=== PATIENT | male | born 1945 ===

== ENCOUNTER → 2016-11-15 | Day surgery (SDC) | payer MEDICARE, MEDICAID ==
--- NOTE | 2016-11-11 10:17 | Pre-Procedure Note/Attestation ---
Pre-Procedure Note/Attestation Complete Prior to Procedure Planned Procedure: left Procedure Narrative: 1. CATARACT EXTRACTION WITH PHACO AND PC IOL IMPLANTATION, LEFT EYE. 2.MALYUGIN RING INSERTION, LEFT EYE FOR FLOPPY IRIS SYNDROME. 3.COMPLEX CATARACT , LEFT EYE Indications for Procedure Pre-Operative Diagnosis: 1. CATARACT ,LEFT EYE. 2. FLOPPY IRIS SYNDROME, LEFT EYE 3. COMPLEX CATARACT , LEFT EYE. Attestation I attest that I discussed the nature of the procedure; its benefits; risks and complications; and alternatives (and the risks and benefits of such alternatives ), prior to the procedure, with the patient (or the patient's legal promotions representative). I attest that, if there was a reasonable possibility of needing a blood transfusion, the patient (or the patient's legal promotions representative) was given the [facility] standardized written summary, pursuant to the Prabhjot Praful Blood Safety Act ([place] Health and Safety Code # 1645, as amended). I attest that I re-evaluated the patient just prior to the surgery and that there has been no change in the patient's H&P, except as documented below: ROSA YE Nov 11, 2016 10:17
[~2016-11-15] VITALS: Ht 170.2 cm; Wt 83.9 kg
[2016-11-15] VITALS (10 sets, daily range): BP systolic 114–148; BP diastolic 57–74
[~2016-11-15] MED LIST: ASPIR-LOW81 MG ORAL; Akten 3.5% 1ml Btl ONE; BENICAR HCT 401 EAC1 ORAL; BSS 15ml BTL ONE; BSS 500ml btl ONE; Dexamethasone 4mg/ml vial ONE; Diclofenac Sod 0.1% Op Soln ONE; DiphenhydrAMINE 50mg/ml Inj IVP PRN; EPINEPHrine 1mg/1ml Amp ONE; Gatifloxacin Opth Solution 0.5% ONE; LR 1000ml 1,000 ML IVLG SCH; LR 1000ml ONE; Lidocaine 1% MPF 10mg/ml 5ml ONE; Midazolam 2mg/2ml Inj ONE; NS Irrig 1000ml ONE; PROPRANOLOL HCL10 MG ORAL; Phenylephrine 10% Opth Soln 5ml ONE; Povidone-Iodine 5% opth solution ONE; Propofol 10mg/ml 20ml IV ONE; Sodium Hyaluronate 10 mg/ml 0.85ml ONE; Sterile Water Irrig 1000ml IRRIG ONE; VIT B12 PO; VIT D PO; ZOCOR20 MG ORAL; acetaZOLAMIDE 125mg tab ORAL ONE; fentaNYL 100 mcg/2 mL IV ONE; fentaNYL 100 mcg/2 mL IV PRN
[2016-11-15] MEDS: Tropicamide 1% Opth Soln LEFT EYE SCH ×3 (07:14→07:39)
[2016-11-15] MEDS: Phenylephrine 10% Opth Soln 5ml LEFT EYE SCH ×3 (07:14→07:39)
[2016-11-15] MEDS: Diclofenac Sod 0.1% Op Soln LEFT EYE SCH ×3 (07:15→07:39)
[2016-11-15] MEDS: Gatifloxacin Opth Solution 0.5% LEFT EYE SCH ×3 (07:15→07:40)
[2016-11-15] MEDS: Akten 3.5% 1ml Btl LEFT EYE SCH ×2 (07:24→07:40)
--- NOTE | 2016-11-15 08:35 | Anethesia Preoperative Eval ---
Anesthesia Pre-op PMH/ROS General Date of Evaluation: Nov 15, 2016 Time of Evaluation: 08:10 Anesthesiologist: Tyson ASA Score: ASA 2 Mallampati Score Class I : Soft palate, uvula, fauces, pillars visible Class II: Soft palate, uvula, fauces visible Class III: Soft palate, base of uvula visible Class IV: Only hard plate visible Mallampati Classification: Class II Surgeon: Pedro Diagnosis: L eye cataract Surgical Procedure: L eye cataract extraction Anesthesia History: none Family History: no anesthesia problems Allergies: Coded Allergies: No Known Allergies (Unverified , 05/20/16) Medications: see eMAR Past Medical History Cardiovascular: Reports: HTN, Denies: CAD, ND, arrhythmia, other, valve dz Pulmonary: Denies: COPD, DORY, asthma, other Gastrointestinal/Genitourinary: Reports: GERD, Denies: CRI, ESRD, other Neurologic/Psychiatric: Denies: CVA, TIA, dementia, depression/anxiety, other Endocrine: Denies: DM, hypothyroidism, other, steroids HEENT: Reports: cataract (L), cataract (R), Denies: [place] (L), [place] (R), glaucoma, other Hematology/Immune: Reports: anemia - mild, Denies: DVT, bleeding disorder, other Musculoskeletal/Integumentary: Denies: DDD, DJD, OA, RA, edema, other PMH Narrative: as above PSxH Narrative: Hernia repair Anesthesia Pre-op Phys. Exam Physician Exam Last Vital Signs Date Time Temp Pulse Resp B/P Pulse Ox O2 Delivery O2 Flow Rate FiO2 11/15/16 07:25 97.3 58 18 130/70 99 Room Air Constitutional: NAD Neurologic: CN 2-12 intact Cardiovascular: RRR, no M/R/G Respiratory: CTA Gastrointestinal: S/NT/ND Airway Exam Mallampati Score: Class II MO: full Neck: flexible ROM: full Teeth: intact Dentures: no lower, no upper Anesthesia Pre-op A/P Labs see chart Studies Pre-op Studies: EKG - NSR Risk Assessment & Plan Assessment: ASA 2 Plan: MAC Status Change Before Surgery: No Pre-Antibiotics Drug: none SUSIE WASHINGTON M.D. Nov 15, 2016 08:35
--- NOTE | 2016-11-15 09:01 | Brief Operative Note ---
Immediate Post Operative Note Operative Note Chief Complaint: Blurry vision, left eye. Difficulty driving and reading Pre-op Diagnosis: 1. CATARACT ,LEFT EYE. 2. FLOPPY IRIS SYNDROME, LEFT EYE 3. COMPLEX CATARACT , LEFT EYE. Procedure: Cataract extraction with phaco and PC IOL imlantation, left eye Post-op Diagnosis: same as pre-op Surgeon: Rosa Vasquez MD Hide Curer: None Additional Surgeons: None Anesthesiologist: Dr. Mehta Anesthesia: MAC Specimen: none Complications: none Condition: stable Estimated Blood Loss: none Drains: none Implant(s) used?: Yes - Multifocal PC IOL implanted in the left eye without complication ROSA VASQUEZ Nov 15, 2016 09:01
--- NOTE | 2016-11-15 09:30 | Immediate Post-Op Evaluation ---
Immediate Post-Op Evalulation Immediate Post-Op Evalulation Procedure: L eye cayataract extraction with IOL Date of Evaluation: Nov 15, 2016 Time of Evaluation: 09:03 IV Fluids: 300 Blood Products: none Estimated Blood Loss: none Urinary Output: none Blood Pressure Systolic: 128 Blood Pressure Diastolic: 72 Pulse Rate: 54 Respiratory Rate: 20 O2 Sat by Pulse Oximetry: 99 Temperature (Fahrenheit): 97.5 Pain Score (1-10): 1 Nausea: No Vomiting: No Complications none Patient Status: awake, patent, none Hydration Status: adequate SUSIE WASHINGTON M.D. Nov 15, 2016 09:30
--- NOTE | 2016-11-15 11:18 | 48 Hour Post Anesthesia Eval ---
Post Anesthesia Evaluation Procedure: L eye cayataract extraction with IOL Date of Evaluation: Nov 15, 2016 Time of Evaluation: 11:16 Blood Pressure Systolic: 148 0: 72 Pulse Rate: 62 Respiratory Rate: 20 Temperature (Fahrenheit): 97.4 O2 Sat by Pulse Oximetry: 99 Airway: patent Nausea: No Vomiting: No Pain Intensity: 1 Hydration Status: adequate Cardiopulmonary Status: stable Mental Status/LOC: patient returned to baseline Follow-up Care/Observations: n/a Post-Anesthesia Complications: none Follow-up care needed: ready to discharge SUSIE WASHINGTON M.D. Nov 15, 2016 11:18
--- NOTE | 2016-11-15 16:34 | Discharge Summary ---
Discharge Summary Discharge Summary Discharge Summary DATE OF ADMISSION:11/15/2016 DATE OF DISCHARGE:11/15/2016 REASON FOR HOSPITALIZATION:Cataract,left eye SURGERY PERFORMED: Cataract extraction with phaco and PC IOL implantation in the left eye. CONDITION IN THE HOSPITAL:The patient tolerated the surgery without complications. DISCHARGE CONDITION: The patient was stable at discharge. DISCHARGE MEDICATIONS: 1. Vigamox eye drops one drop q.i.d, 2. Prednisolone one drop q.i.d, 3. Ilevro eye drop, one drop q.d. POSTOPERATIVE ORDERS: The patient has to rest at home. No bending, No lifting, No watching Television tonight. POSTOPERATIVE FOLLOW UP: The patient will be followed in my office tomorrow morning at 7 o'clock. ROSA YE Nov 15, 2016 16:34
--- NOTE | 2016-11-15 16:49 | Operative Note - PDOC ---
Operative Note Operative Note Operative Report DATE OF OPERATION:11/15/2016 FACILITY: [facility] SURGEON: Chaparro Vasquez FELTING MACHINE OPERATOR: None ANESTHESIOLOGIST: Dr. Mehta ANESTHESIA: Monitored anesthesia care (MAC) PREOPERATIVE DIAGNOSES: 1. Cataract, left eye. POSTOPERATIVE DIAGNOSES: 1. Cataract, left eye. SURGERY PERFORMED: 1. Cataract extraction with phacoemulsification and posteriro chamber intraocular lens implantation in the left ey INDICATION FOR SURGERY: The patient is a 70- year-old gentleman with history of high blood pressure hypercholesterolemia, and arthritis. He is taking zocor, mobic and benicar.denies any allergy. he denies smoking and he drinks alcohol socially. He is complaining of blurry vision in the left eye. On examination of the Left eye., the cornea is clear. ANterior chamber is clean and quiet, but is shallow. The pupillary reflex is normal. There is no RAPD. There is 4 nuclear sclerosis and 2 cortical cataract. The fundus shows normal optic disc, normal macula, and periphery retina is flat. To improve his vision int he left eye, the cataract has to be removed and posterior chamber intraocular lens has to be implanted. INFORMED CONSENT: The nature of the surgery, risks benefits, alternatives, and potential complications were explained all in detail to the patient. The potential complications including. But not limited to bleeding, infection, posterior capsular rupture,lens subluxation, flat anterior chamber,iris prolapse , uveitis, corneal edema, macular edema, endophthalmitis, retinal detachment, loss of vision and even loss of the eye were all explained in detail to the patient. The patient voiced understanding and accepted all the complications.The alternatives including accommodating lens, multifocal lens, toric lens, and conventional cataract surgery with limbal relaxing incision (LRI ) for treatment of astigmatism were all explained in detail to the patient who voiced understanding. The patient elected to have cataract surgery with insertion of the multifocal lens. Then, he signed the consent from,which is in the chart. DESCRIPTION OF SURGERY AND FINDINGS: Following hat, the patient was taken to the operation room in a stable condition. Lidocaine gel Akten 3.5% were applied to the conjunctiva of the left eye. Anesthesia was given by the anesthesiologist , Dr. Mehta. After adequate anesthesia and sedation had been achieved, the left eye was prepped and draped in the usual and sterile fashion for intraocular surgery.Following that, a speculum was placed in the left eye. Following that, using a super sharp knife, a clear corneal side port was created. Following that 1% lidocaine without preservative (MPF) was injected into the anterior chamber.Viscoelastic agent Healon was injected into the anterior chamber. Following that, a clear corneal temporal keratotomy was performed with a 2.8 mm keratome. Following that, viscoelastic agent was injected into the anterior chamber again. Following that, Vision blue was injected under the viscoelastic agent to stain the anterior capsule. Following that, a clear fresh viscoelastic agent was injected into the anterior chamber again. Under the viscoelastic agent, an anterior capsulotomy was performed in the fashion of capsulorrhexis beautifully. Following that viscoelastic agent was removed from the anterior chamber. Following that, using a balanced salt solution hydrodissection and hydrodelineation was performed and the nucleus was freed. Following that, the viscoelastic agent was injected into the anterior chamber again to protect the endothelium of the cornea. Following that, using phacoemulsification machine inthe fashion of horizontal chop, the nucleus was removed in toto. Following that, the cortical material was removed from the capsular bag with irrigation aspiration unit and the capsular bag was polished.Following that, the capsular bag was filled with viscoelastic agent. Following that, a+21.0 diopter , [id number] PCIOL with serial number [id number] ( [employer]) was injected into the capsular bag. Using a Sinskey hook , the lens was manipulated within the proper position.Following that, viscoelastic agent was removed from the anterior and posterior part of the lens.The anterior chamber was filled with balanced salt solution. Following that , the wound was hydrated with balanced salt solution and the wound was checked for leakage. There was no leakage. Following that, the wound was hydrated and the wound was checked for leakage. There was no leakage. Following that, Vigamox eye drops were applied to the conjunctiva of the left eye. The patient tolerated the surgery without complications. At the end of the surgery, the eye was patched with a clear sterile fenestrated shield. Following that, the patient was transferred to the recovery room. In the recovery room, 125mg Diamox was given by mouth stat. Postoperative orders and directions were given to the patient. The patient will be discharged home upon stabilization. The patient will be followed in my office tomorrow morning at 7 o 'clock. MD CASSI Howell JOHN Nov 15, 2016 16:49
== END | disposition home or self-care (01) ==
LOC: SUR 06:44
DX: H25.12 Age-related nuclear cataract, left eye (principal); H25.012 Cortical age-related cataract, left eye; M19.90 Unspecified osteoarthritis, unspecified site; I10 Essential (primary) hypertension; K21.9 Gastro-esophageal reflux disease without esophagitis; E78.00 Pure hypercholesterolemia, unspecified; D64.9 Anemia, unspecified
CPT/HCPCS: 66984; J0171; J1100; J2250; J2704; J3010; J7120; V2632; 94003; 94150

== ENCOUNTER → 2016-11-29 | Day surgery (SDC) | payer MEDICARE, MEDICAID, SELFPAY ==
--- NOTE | 2016-11-18 10:23 | Pre-Procedure Note/Attestation ---
Pre-Procedure Note/Attestation Complete Prior to Procedure Planned Procedure: right Procedure Narrative: 1. CATARACT EXTRACTION WITH PHACO AND PC IOL IMPLANTATION, RIGHT EYE. 2.LIMBAL RELAXING INCISION,RIGHT EYE. 3.MALYUGIN RING INSERTION, RIGHT EYE FOR FLOPPY IRIS SYNDROME. 4.COMPLEX CATARACT , RIGHT EYE Indications for Procedure Pre-Operative Diagnosis: 1. CATARACT ,RIGHT EYE. 2.ASTIGMATISM, RIGHT EYE. 3. FLOPPY IRIS SYNDROME,RIGHT EYE 4. COMPLEX CATARACT , RIGHT EYE. Attestation I attest that I discussed the nature of the procedure; its benefits; risks and complications; and alternatives (and the risks and benefits of such alternatives ), prior to the procedure, with the patient (or the patient's legal customer contact representative). I attest that, if there was a reasonable possibility of needing a blood transfusion, the patient (or the patient's legal customer contact representative) was given the [facility] standardized written summary, pursuant to the Prabhjot Selah Blood Safety Act ([place] Health and Safety Code # 1645, as amended). I attest that I re-evaluated the patient just prior to the surgery and that there has been no change in the patient's H&P, except as documented below: ROSA YE Nov 18, 2016 10:23
[2016-11-29] VITALS (8 sets, daily range): BP systolic 107–150; BP diastolic 61–89
[~2016-11-29] VITALS: Ht 172.7 cm; Wt 83.9 kg
[~2016-11-29] MED LIST changes: -Akten 3.5% 1ml Btl ONE; +Akten 3.5% 1ml Btl RIGHT EYE ONE; +Akten 3.5% 1ml Btl RIGHT EYE SCH; -BSS 15ml BTL ONE; -BSS 500ml btl ONE; -Dexamethasone 4mg/ml vial ONE; -Diclofenac Sod 0.1% Op Soln ONE; +Diclofenac Sod 0.1% Op Soln RIGHT EYE SCH; +DiphenhydrAMINE 50mg/ml Inj ONE; -EPINEPHrine 1mg/1ml Amp ONE; -Gatifloxacin Opth Solution 0.5% ONE; +Gatifloxacin Opth Solution 0.5% RIGHT EYE SCH; +Labetalol 5mg/ml 20ml vial IV PRN; -Midazolam 2mg/2ml Inj ONE; -Phenylephrine 10% Opth Soln 5ml ONE; +Phenylephrine 10% Opth Soln 5ml RIGHT EYE SCH; -Povidone-Iodine 5% opth solution ONE; -Propofol 10mg/ml 20ml IV ONE; -Sodium Hyaluronate 10 mg/ml 0.85ml ONE; +Tropicamide 1% Opth Soln RIGHT EYE SCH; -fentaNYL 100 mcg/2 mL IV PRN
[2016-11-29] MEDS: Phenylephrine 10% Opth Soln 5ml RIGHT EYE SCH ×3 (06:55→07:11)
[2016-11-29] MEDS: Tropicamide 1% Opth Soln RIGHT EYE SCH ×3 (06:55→07:11)
[2016-11-29] MEDS: Diclofenac Sod 0.1% Op Soln RIGHT EYE SCH ×3 (06:56→07:11)
[2016-11-29] MEDS: Gatifloxacin Opth Solution 0.5% RIGHT EYE SCH ×3 (06:57→07:11)
[2016-11-29] MEDS: Akten 3.5% 1ml Btl RIGHT EYE SCH ×3 (07:07→07:25)
--- NOTE | 2016-11-29 07:24 | Anethesia Preoperative Eval ---
Anesthesia Pre-op PMH/ROS General Date of Evaluation: Nov 29, 2016 Anesthesiologist: Roscoe ASA Score: ASA 2 Mallampati Score Class I : Soft palate, uvula, fauces, pillars visible Class II: Soft palate, uvula, fauces visible Class III: Soft palate, base of uvula visible Class IV: Only hard plate visible Mallampati Classification: Class II Surgeon: Pedro Diagnosis: Right cataract Surgical Procedure: Right cataract extraction with IOL Anesthesia History: none Family History: no anesthesia problems Allergies: Coded Allergies: No Known Allergies (Unverified , 05/20/16) Medications: see eMAR Past Medical History Cardiovascular: Reports: HTN, other - HLD, Denies: CAD, [place], arrhythmia, valve dz Pulmonary: Denies: COPD, DORY, asthma, other Gastrointestinal/Genitourinary: Denies: CRI, ESRD, GERD, other Neurologic/Psychiatric: Denies: CVA, TIA, dementia, depression/anxiety, other Endocrine: Denies: DM, hypothyroidism, other, steroids HEENT: Denies: [place] (L), [place] (R), cataract (L), cataract (R), glaucoma, other Hematology/Immune: Denies: DVT, anemia, bleeding disorder, other Musculoskeletal/Integumentary: Reports: OA, Denies: DDD, DJD, RA, edema, other PSxH Narrative: RIHR, low back sx, right shoulder sx Anesthesia Pre-op Phys. Exam Physician Exam Last Vital Signs Date Time Temp Pulse Resp B/P Pulse Ox O2 Delivery O2 Flow Rate FiO2 11/29/16 06:44 97.6 51 18 107/62 99 Room Air Constitutional: NAD Cardiovascular: RRR Respiratory: CTA Airway Exam Mallampati Score: Class II MO: full ROM: full Teeth: intact Anesthesia Pre-op A/P Labs see chart Studies Pre-op Studies: EKG - sb Risk Assessment & Plan Assessment: ASA II Plan: MAC Status Change Before Surgery: No Pre-Antibiotics Drug: N/A RAJENDRA PASCUAL M.D. Nov 29, 2016 07:24
--- NOTE | 2016-11-29 07:49 | Immediate Post-Op Evaluation ---
Immediate Post-Op Evalulation Immediate Post-Op Evalulation Procedure: Right cataract extraction with IOL Date of Evaluation: Nov 29, 2016 Time of Evaluation: 08:40 IV Fluids: 500 Blood Products: 0 Estimated Blood Loss: 0 Urinary Output: 0 Blood Pressure Systolic: 140 Blood Pressure Diastolic: 80 Pulse Rate: 48 Respiratory Rate: 13 O2 Sat by Pulse Oximetry: 100 Temperature (Fahrenheit): 97.1 Pain Score (1-10): 0 Nausea: No Complications 0 Patient Status: awake, reacts, patent, none Hydration Status: adequate Drug: N/A RAJENDRA PASCUAL M.D. Nov 29, 2016 07:49
--- NOTE | 2016-11-29 07:49 | 48 Hour Post Anesthesia Eval ---
Post Anesthesia Evaluation Procedure: Right cataract extraction with IOL Date of Evaluation: Nov 29, 2016 Blood Pressure Systolic: 141 0: 86 Pulse Rate: 56 Respiratory Rate: 16 O2 Sat by Pulse Oximetry: 100 Airway: patent Nausea: No Vomiting: No Pain Intensity: 0 Hydration Status: adequate Cardiopulmonary Status: at baseline Mental Status/LOC: patient returned to baseline Post-Anesthesia Complications: 0 Follow-up care needed: ready to discharge RAJENDRA PASCUAL M.D. Nov 29, 2016 07:49
--- NOTE | 2016-11-29 08:44 | Brief Operative Note ---
Immediate Post Operative Note Operative Note Chief Complaint: blurry vision, right eye. Difficulty driving and reading Pre-op Diagnosis: Cataract, right eye Procedure: Cataract extractio with phaco and PC IOL implantation, right eye Post-op Diagnosis: Cataract, right eye Post-op Diagnosis: same as pre-op Surgeon: Rosa Vasquez MD. Community Youth Secretary: None Additional Surgeons: None Anesthesiologist: Roscoe FUENTES Anesthesia: MAC Specimen: none Complications: none Condition: stable Estimated Blood Loss: none Drains: none Implant(s) used?: Yes - Monofocal PC IOL implanted in the right eye without complication ROSA VASQUEZ Nov 29, 2016 08:44
--- NOTE | 2016-11-29 13:48 | Pre-op HX & Phy Repo 2 SIG ---
DATE OF ADMISSION: 11/29/2016 PRESURGICAL INTERNAL MEDICINE HISTORY AND PHYSICAL REASON FOR EVALUATION: I was asked by Dr. Chaparro Vasquez to see this 71-year-old male, who is going for elective surgery on the right eye. The patient has a cataract right eye. The patient was evaluated. Chart was reviewed. PAST MEDICAL HISTORY/REVIEW OF SYSTEMS: Remarkable for hypertension. No history of diabetes, heart attack or stroke. Denies history of GI bleeding, gastritis, peptic ulcer disease or heartburn. No history of thyroid problem. No seizures or Parkinson disease. The patient has a history of renal cysts and urinary urgency, BPH. The patient has also peripheral neuropathy secondary to lumbar disk degenerative disease. PAST SURGICAL HISTORY: Cataract left eye two weeks ago, spinal disc surgery, right shoulder surgery and hernia. MEDICATIONS: Current medications include Benicar, vitamin D, multivitamin, aspirin, , Crestor, and Detrol. ALLERGIES: Not known. SOCIAL HISTORY: The patient is a ex-smoker, smoked for about 30 years and stopped 9 years ago. Denies alcohol or street drug use. FAMILY HISTORY: Father at the age of 90 with complication of stroke and mother in accident. PHYSICAL EXAMINATION: GENERAL: Alert, well-developed, well-nourished male in his 70s, in no acute distress. VITAL SIGNS: Blood pressure 107/67, temperature 99.4 degrees, pulse 57 and regular. Respiration 18 and regular, and O2 saturation 99% on room air. HEART: No ectopy. No murmur. No S3 or S4. SKIN: Warm, clear, and dry. No rashes. LYMPHATICS: Lymph nodes not enlarged. HEENT: Head, normocephalic. Ears, clear. No discharge. Nose, clear. No discharge. Mouth, tongue in midline, moist. No dentures. Eye, per Dr. Chaparro Tejada. NECK: Supple. Trachea midline. Lymph nodes are not enlarged. The thyroid gland not enlarged. CHEST: No deformity or asymmetry. LUNGS: Clear auscultation to percussion. No rales or rhonchi. No wheezing. HEART: Sinus rhythm. Bradycardia. No murmur. No S3 or S4. ABDOMEN: Soft. No rebound. No palpable mass. Liver and spleen not enlarged. EXTREMITIES: No edema. No varicose veins. No calf tenderness. both feet. Ambulates without assistance. GENITOURINARY TRACT: Normal for gender. No CVA tenderness. NEUROLOGIC SYSTEM: No asymmetry. No tremor or nystagmus. LABORATORY AND DIAGNOSTIC DATA: EKG, sinus bradycardia, otherwise normal, rate is 56 beats per minute. Laboratory, hemoglobin 12.3 and hematocrit 36. Chemistry, normal limits. IMPRESSION: 1. Cataract, right eye. 2. Hypertension, controlled. 3. Benign prostatic hypertrophy. 4. Spinal disc degenerative disease. 5. Peripheral neuropathy. 6. Renal cysts. PLAN: Cataract extraction, right eye with intraocular lens implant per Dr. Chaparro Vasquez. CONCLUSION: The patient is a 71-year-old male with history of hypertension, well controlled on medications. The patient did not eat or drink from last night. Laboratory, mild anemia. The patient's condition optimized for surgery. Thank you very much, Dr. Tejada, for privilege to participate presurgical care of this interesting patient. Amalia King M.D. DR: Jane JOB#: [id number] CC:
--- NOTE | 2016-11-30 04:18 | Operative Note - Dictated ---
DATE OF OPERATION: 11/29/2016 FACILITY: [facility]. SURGEON: Chaparro Vasquez M.D. PURCHASING BUYER: None. ANESTHESIOLOGIST: Dr. Malhotra. ANESTHESIA: Monitored anesthesia care (MAC). PREOPERATIVE DIAGNOSES: 1. Cataract, right eye. 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 POSTOPERATIVE DIAGNOSES: 1. Cataract, right eye. 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 SURGERY PERFORMED: 1. Cataract extraction with phacoemulsification of posterior chamber intraocular lens implantation, right eye. 2. Malyugin ring insertion for treatment of Floppy iris syndrome. INDICATION FOR SURGERY: The patient is a 71-year-old gentleman with history of hypertension, benign prostatic hypertrophy (BPH), and osteoarthritis. He is taking the medication including Diovan, pain medication, and Flomax. He has had cataract surgery in the left eye last week and chose to go ahead as he is happy with the result. On examination of the right eye, the cornea was clear. Anterior chamber was clean and quiet. Pupillary reflex is normal. There is no RAPD. There is 3+ nuclear sclerosis cataract and 3+ cortical cataract. Funduscopy showed normal macula, normal optic disc, and periphery retina is flat. To improve his vision in the right eye, the cataract has to be removed. Anterior chamber intraocular lens has to be implanted. Also the patient has astigmatism, so astigmatism will have to be addressed as well. INFORMED CONSENT: The nature of the surgery, risks, benefits, alternatives, and potential complications were explained all in detail to the patient. The potential complications including, but not limited to bleeding, infection, posterior capsular rupture, lens subluxation, flat anterior chamber, iris prolapse, uveitis, corneal edema, macular edema, endophthalmitis, retinal detachment, loss of vision, and even loss of the eye were all explained in detail to the patient. The patient voiced understanding and accepted all the complications. The alternatives including accommodating lenses, multifocal lenses, toric lens, and conventional cataract surgery with limbal relaxing incision (LRI) for treatment of astigmatism were all explained in detail to the patient. The patient voiced understanding. The patient elected to have cataract surgery with insertion of and correction of astigmatism. Then, he signed the consent form, which is in the chart. DESCRIPTION OF SURGERY AND FINDINGS: Following that, the patient was taken to the operation room in a stable condition. Lidocaine gel Akten 3.5% was applied to the conjunctiva of the right eye. Anesthesia was given by the anesthesiologist, Dr. Malhotra. After adequate anesthesia and sedation had been achieved, the right eye was prepped and draped in a sterile fashion for intraocular surgery. Following that, a speculum was placed in the right eye. Before the patient was taken to the operation room, the cornea was marked at 180 and 90 meridian. In the operation room, using a corneal marker and marking pen, the meridian of the cornea was marked. Following that, using a manju knife, two parallel incisions were placed on the steep meridian of the cornea to treat the patient's astigmatism. Following that, using a Super Sharp knife, a clear corneal side port was created. A 1% lidocaine without preservative (MPF) was injected into the anterior chamber. The viscoelastic agent Healon was injected into the anterior chamber. Following that, a clear corneal temporal keratotomy was performed with 2.8 mm keratome. Following that, viscoelastic agent was injected into the anterior chamber again. Following that, a Malyugin ring was injected into the anterior chamber and the coils of the Malyugin ring was engaged with the sphincter of the pupil. A manju shaped space was created to perform safe capsulorrhexis and safe phacoemulsification. Following that, VisionBlue was injected under the viscoelastic agent to extend the anterior capsule. Following that, clear, fresh viscoelastic agent was injected and under the viscoelastic agent, an anterior capsulotomy in the fashion of capsulorrhexis was created. Following that, whole viscoelastic agent was removed from the anterior chamber. Following that, hydrodissection and hydrodelineation was performed with balanced salt solution and the nucleus was freed. Following that, a new viscoelastic agent was injected into the anterior chamber for protection of the endothelium of the cornea. Following that, using a phacoemulsification machine in the fashion of horizontal chop, the nucleus was removed in total. Following that, viscoelastic was removed from the capsular bag using irrigation and aspiration unit. Following that, the capsular bag was polished. Following that, the capsular bag was filled with viscoelastic agent, Healon. Following that, a +21.5 diopter ZLB00 foldable PCIOL with serial number of [id number] was injected into the capsular bag. Using a Sinskey hook, the lens was manipulated within the proper position. Following that, the viscoelastic agent was removed from the anterior posterior part of the lens and the anterior chamber was filled with balanced salt solution. Following that, the wound was hydrated with balanced salt solution. Before the hydration of the wound, the Malyugin ring was removed from the anterior chamber. Vigamox eye drops were applied to the conjunctiva of the right eye. The patient tolerated the surgery without complications. At the end of the surgery, the eye was patched with a clear sterile fenestrated shield. Following that, the patient was transferred to the recovery room. In the recovery room, 125 mg Diamox was given by mouth stat. Postoperative orders and directions were given to the patient. The patient will be discharged home upon stabilization. The patient will be followed in my office tomorrow morning at 7 o'clock. Chaparro Vasquez M.D. DR: WILLIAM JOB#: [id number] CC: TRACY
== END | disposition home or self-care (01) ==
LOC: SUR 06:06
DX: H25.11 Age-related nuclear cataract, right eye (principal); H25.011 Cortical age-related cataract, right eye; H21.81 Floppy iris syndrome; I10 Essential (primary) hypertension; N40.1 Benign prostatic hyperplasia with lower urinary tract symptoms; R39.15 Urgency of urination; E78.5 Hyperlipidemia, unspecified; M19.90 Unspecified osteoarthritis, unspecified site; M51.36 Other intervertebral disc degeneration, lumbar region; G62.9 Polyneuropathy, unspecified; N28.1 Cyst of kidney, acquired; Z87.891 Personal history of nicotine dependence
CPT/HCPCS: 66982; J1200; J3010; J7120; V2632; 94003; 94150